=== PATIENT | male | born 1940 | race Caucasian/White ===

== ENCOUNTER → 2016-08-19 | Outpatient (CLI) | payer OTHER ==
[~2016-08-19] MED LIST: ALLOPURINOL 30300 M1 PO; CENTRUM SILVER1 EAC2 PO; COUMADIN 5 MG TA5 M1 PO; FAMOTIDINE 40 M40 M1 PO; FLOMAX0.4 MG PO; MOBIC7.5 MG PO; MYRBETRIQ50 MG PO; PRINIVIL5 MG; TRAZODONE HCL50 MG PO; ZESTRIL10 MG PO; ZOCOR20 MG PO
== END ==
LOC: RAD 16:12
DX: R06.02 Shortness of breath (principal)

== ENCOUNTER 2017-09-15 10:04 | Inpatient (IN) | payer OTHER ==
[~2017-09-15] VITALS: Ht 180.3 cm; Wt 83.0 kg
--- NOTE | ~2017-09-15 | H ---
[facility] [place] [address] HISTORY AND PHYSICAL Name: NEO ANDREWS Room #: 217-P ADM IN M.R.#: [id number] Admission: 09/15/17 Attend Phys: Mo Garrett MD Discharge: Date of : 40 Report #: [id number] THIS REPORT FOR: //name// CC: Tomi Moeller MD [facility] Mo Garrett MD DATE OF SERVICE: 09/15/2017 CHIEF COMPLAINT: Dizziness. HISTORY OF PRESENT ILLNESS: The patient is a 76-year-old male who presented to the [facility] Emergency Department at the urging of Dr. Garrett's office staff after he developed dizziness yesterday, the day prior to his presentation. The patient reports that the dizziness started when he was seated at the table at dinner with family and he put his head back and became dizzy and when he brought his head forward again, the dizziness quickly resolved. He described it as a room spinning at that time. He had no further episodes that night, although he did feel somewhat lightheaded overnight as he got up to go to the bathroom several times and reported needing to steady himself against furniture or lucas in order to keep from falling. On the following morning, he was again having dizziness and possibly some sweating and he checked his blood pressure and it was elevated in the range of 170s systolic. At that point, he contacted Dr. Garrett's office and with their help decided to be brought to the Emergency Room for further evaluation and treatment. I was contacted by Dr. Ryann Lux after her evaluation of him and he is admitted for further evaluation and treatment. PAST MEDICAL HISTORY: Includes benign prostatic hypertrophy with transurethral resection of the prostate. Hypertension. Chronic atrial fibrillation without need for rate-controlling medications. Stroke at least 10 years ago in [place]. He tells me that this atrial fibrillation was diagnosed at that time and felt to be the major contributor to the stroke. He has also had a squamous cancer removed from his nose. He did not mention gout, but he takes allopurinol as one of his formal medications. He did not mention acid reflux, but takes famotidine twice daily. He also has a skin condition, some sort of eczema, for which he takes 5 ivermectin tablets on a weekly basis. He reports that since the stroke, he has a residual left-sided weakness, but he is not very debilitated by the stroke than he had. MEDICATIONS: Include warfarin, tamsulosin, famotidine, allopurinol, multivitamin, simvastatin, lisinopril and ivermectin. ALLERGIES: He has no known drug allergies. 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 He [address] [address] HISTORY AND PHYSICAL Name: NEO ANDREWS Manuela Room #: 217-P [facility] IN M.R.#: [id number] Admission: 09/15/17 Attend Phys: Mo Garrett MD Discharge: Date of : 40 Report #: [id number] is a nonsmoker, nondrinker and has never used recreational drugs. REVIEW OF SYSTEMS: The patient denies any dizziness prior to yesterday. He does admit that on a daily basis he gets very tired in the afternoons and easily falls asleep and takes naps from his extreme fatigue. He recently started working with a marine animal trainer to try and improve his general health. However, his visits with the marine animal trainer had been frustrated by increasing symptoms of dizziness or lightheadedness or weakness. His third visit, he basically had to cancel because of the dizziness now. He denies any chest pain or shortness of breath. His appetite has been otherwise pretty good. His bowel habits are regular and controlled. His urinary habits suggest that he has some urgency and nocturia because of his transurethral prostate resection in the past. No other symptoms of weight loss or neurological symptoms or trauma. PHYSICAL EXAMINATION: VITAL SIGNS: In the Emergency Room showed temperature of 36.4 degrees centigrade, pulse of 48, respirations of 18, blood pressure of 178/62 with a pulse oximetry of 97% on room air and a self-reported weight of 182 pounds. GENERAL: The patient is a well-developed, well-nourished white male, in no distress. HEENT: The extraocular muscles are intact. The oropharynx is moist and pink. No lesions, no exudates. The patient has a nasal deformity across the bridge which is apparently due to a prior squamous cancer resection surgery and he appears to have a deviated septum as well. Hearing is grossly normal. NECK: Without adenopathy, thyromegaly, mass or significant bruit. LUNGS: Fairly clear bilaterally. CARDIAC EXAMINATION: Reveals a reveals a regular bradycardia with occasional extrasystoles noted (note atrial fibrillation on his EKG). ABDOMEN: Soft. Bowel sounds are present. No visceromegaly or masses. No bruits, no hernias. EXTREMITIES: No cyanosis, no clubbing, no edema. Peripheral pulses are strong throughout and easily palpated. He has some mild left-sided weakness in the upper and lower extremities. Gait was not assessed. MENTAL STATUS: The patient is alert. He is fully oriented. No hallucinations, no delusions. He is very sharp with his short and long-term memory. He is able to think abstractly with ease. His affect is full. No other focal neurologic deficits of cranial nerves or cranial cerebellar noted on exam today. ASSESSMENT AND PLAN: 1. Positional vertigo, benign and paroxysmal - the meclizine appeared to give him a great deal of relief in the Emergency Room today. We will order it to be available as needed up to 3 times a day. However, this is not his only problem. 2. Severe bradycardia - in the setting of atrial fibrillation. This degree of bradycardia is quite marked. In reviewing his telemetry monitored strips from this afternoon, he had a rate of 34 beats per minute at one point. He certainly merits careful observation for 24 hours here at the hospital to make sure that [facility] [address] [place] [address] HISTORY AND PHYSICAL Name: NEO ANDREWS Room #: 217-P ADM IN [facility].#: [id number] Admission: 09/15/17 Attend Phys: Mo Garrett MD Discharge: Date of : 40 Report #: [id number] he is not developing any further more severe arrhythmias. His symptoms of extreme fatigue in the afternoons suggest that his cardiac problems may be contributing more to his clinical degradation in the last year, but might be expected. At this point, I do not believe his dizziness has anything to do with his bradycardia. 3. Hypertension - I agree with careful management of blood pressure lowering drugs in the event of this severe bradycardia problem, but he has already had a stroke once. 4. Chronic atrial fibrillation. Continue Coumadin. He is currently anticoagulated adequately, with an INR of 2.1 in the Emergency Room. Echocardiogram will be very useful to see what kind of ejection fraction he has. In a possibly unrelated note, the patient reports having had a cardiac catheterization when he was a teenager and was initially told that he would not be able to play and compete in contact sports like football. This was later rescinded. He is not sure of the reason that was given at that time. He states that he did have a heart murmur that went away with time. Possibly a patent foramen ovale? The echocardiogram will be very important in his hospital workup. 5. Benign prostate hypertrophy, status post transurethral resection of the prostate, with some residual nocturia and urinary urgency. We will monitor and treat accordingly. He does not have any evidence of infection at this time. 6. Hyperlipidemia. Continue on statin therapy as part of the total risk reduction strategy after a stroke. 7. Presumed gastroesophageal reflux disease. Continue H2 receptor antagonist therapy for now. 8. History of squamous cell carcinoma across the nose. Follow up as per Dermatology. 9. History of facial eczema, type not specified - we will continue ivermectin as an outpatient. The patient desires to have a full code blue status and the order has been entered electronically. <ELECTRONICALLY SIGNED> By: Adarsh Marr MD 09/16/17 1047 520 Adarsh Marr MD /nt
--- NOTE | ~2017-09-15 | D ---
[facility] [place] [address] DISCHARGE SUMMARY Name: NEO ANDREWS Room #: 217-P [facility] IN M.R.#: [id number] Admission: 09/15/17 Attend Phys: Mo Garrett MD Discharge: 09/16/17 Date of : 40 Report #: [id number] THIS REPORT FOR: //name// CC: Tomi Moeller MD [facility] Mo Garrett MD DATE OF SERVICE: 09/16/2017 HOSPITAL COURSE: The patient is a 76-year-old male who presented with dizziness at the emergency room and elevated blood pressure. His initial workup showed significant bradycardia in the presence of chronic atrial fibrillation, without rate limiting drugs. His dizziness, however, was described as a room spinning type of dizziness and definitely related to position. He was admitted for 24 hours to observe his cardiovascular rhythm, given the underlying bradycardia. His heart rate was as low as 34 beats per minute at one point, but never really below that. Cardiology consultation with Dr. Tomi Moeller was obtained and the following day, we discussed the results of his telemetry and the history he gave. It is felt to be quite unlikely that his dizziness was due to a cardiovascular cause. We agree that vertigo, benign paroxysmal positional vertigo, is the most likely cause of his symptoms. He did obtain prompt and excellent response with p.r.n. doses of meclizine. Echocardiogram was obtained to assess his cardiac structure and function and the results of this test are pending at time of this dictation. Dr. Moeller also felt that a 2-week event monitor study was appropriate and placed it during this patient's hospital stay. At time of discharge, the plan is for the patient to be seen by Dr. Moeller's office in 2 weeks for followup and he is otherwise to continue his prehospitalization medications with the addition of p.r.n. doses of meclizine. I also educated the patient in the [place] exercises for vestibular problems. At time of discharge, the patient is on following medications regimen, meclizine 25 mg by mouth 3 times a day p.r.n. dizziness, tamsulosin 0.4 mg by mouth daily for prostatism, famotidine 40 mg by mouth b.i.d. for GERD, allopurinol 300 mg daily for gout, multivitamin daily, simvastatin 40 mg by mouth daily, lisinopril 10 mg by mouth daily and ivermectin for treatment of a facial rash per his manager heart. Incidentally, his INR was 2.1 on arrival. DISCHARGE DIAGNOSES: 1. Benign paroxysmal and positional vertigo. 2. Severe bradycardia. 3. Chronic atrial fibrillation. 4. Hypertension. [address] [address] DISCHARGE SUMMARY Name: NEO ANDREWS Room #: 217-P [facility] IN M.R.#: [id number] Admission: 09/15/17 Attend Phys: Mo Garrett MD Discharge: 09/16/17 Date of : 40 Report #: [id number] 5. Prostatism. 6. Gastroesophageal reflux disease. 7. Gout history. 8. Hyperlipidemia. 9. Unspecified eczema. The patient has followup visits with Dr. Moeller in [address] Garrett in 2 weeks. He specifically asked me if it was okay to start an exercise program with a principal trainer. I did discuss this with Dr. Moeller and as long as the patient's symptoms like dizziness and shortness of breath are not excessive, he can participate and is encouraged to discuss the matter further with Dr. Garrett upon his return. <ELECTRONICALLY SIGNED> By: Adarsh Marr MD 09/17/17 1543 1139 1229 Adarsh Marr MD /nt
--- NOTE | ~2017-09-15 | EKG ---
[address] [address] ELECTROCARDIOGRAM REPORT Name: NEO ANDREWS Room #: 217-P ADM IN M.R.#: [id number] Admission: 09/15/17 Attend Phys: Mo Garrett MD Discharge: Date of : 40 Report #: [id number] THIS REPORT FOR: //name// [facility] ED Test Date: 2017-09-15 Test Time: 10:25:01 Pat Name: NEO ANDREWS Department: Room: 217 Gender: M Network Designer: BETHANY : 1940 Requested By: Ryann Lux Order Number: [id number] MD: Tomi Moeller Measurements Intervals [place] Rate: 50 P: NC: QRS: -10 QRSD: 104 T: -15 QT: 466 QTc: 425 Interpretive Statements Atrial fibrillation Abnormal R-wave progression, early transition Nonspecific T abnormalities, lateral leads Small inferior Q waves Compared to ECG 05/16/2015 23:24:33 No significant change was found Electronically Signed On 09-15-2017 17:18:01 CDT by Tomi Moeller [email or web address] <ELECTRONICALLY SIGNED> By: Tomi Moeller MD, FACC 09/15/17 1718 1025 1025 Tomi Moeller MD, [facility] /EPI
--- NOTE | ~2017-09-15 | 2DMMODE ---
[facility] [address] [place] [address] 2 D/M-MODE ECHOCARDIOGRAM Name: NEO ANDREWS Room #: 217-P [facility] IN [facility]#: [id number] Admission: 09/15/17 Attend Phys: Mo Garrett, Discharge: Date of : 40 Date of Service: 09/16/17 1222 Report #: [id number] THIS REPORT FOR: //name// APPROVED REPORT Study performed: 09/16/2017 08:31:36 EXAM: Comprehensive 2D, Doppler, and color-flow Echocardiogram Patient Location: Bedside Room #: Echo lab 2 Status: routine BSA: 2.03 HR: 51 bpm BP: 118/51 mmHg Rhythm: Atrial Fibrillation Other Information Study Quality: Good Indications Atrial Fibrillation Dizziness and Vertigo Bradycardia Hypertension/HDD 2D Dimensions RVDd: 57.66 mm LVEF(%): 61.80 (>50%) IVSd: 9.76 (7-11mm) LVOT Diam: 19.78 (18-24mm) LVDd: 42.42 mm PWd: 11.11 (7-11mm) Ascending Ao: 32.44 (22-36mm) LVDs: 28.45 (25-40mm) Aortic Root: 32.80 mm IVC: 20.00 mm Lo's LVEF: 61.80 % Volumes Left Atrial Volume (Systole) Single Plane 4CH: 111.11 mL Single Plane 2CH: 157.76 mL LA ESV Index: 74.00 mL/m2 Aortic Valve AoV Peak Power.: 1.45 m/s AO Peak Gr.: 8.39 mmHg LVOT Max P.76 mmHg LVOT Max V: 0.97 m/s NICK Vmax: 2.06 cm2 AI Vmax: 3.83 m/s [facility] [place] [address] 2 D/M-MODE ECHOCARDIOGRAM Name: MARAHPIERRENEO Room #: 217-P [facility] IN ..#: [id number] Admission: 09/15/17 Attend Phys: Mo Garrett, Discharge: Date of : 40 Date of Service: 09/16/17 1222 Report #: [id number] AI [place]: 1.54 m/s2 AI PHT: 726.28 ms Mitral Valve MV Decel. Time: 160.65 ms MV E Max Power.: 1.10 m/s Pulmonary Valve PV Peak Power.: 2.70 m/s PV Peak Gr.: 29.21 mmHg AL End Vmax: 1.27 m/s Tricuspid Valve TR Peak Power.: 2.72 m/s TR Peak Gr.: 29.52 mmHg PA Pressure: 40.00 mmHg Left Ventricle The left ventricle is normal size. There is normal LV segmental wall motion. There is normal left ventricular wall thickness. The left ventricular systolic function is normal. The left ventricular ejection fraction is within the normal range. LVEF is 60-65%. This study is not technically sufficient to allow evaluation of the LV diastolic function due to atrial fibrillation. Right Ventricle Right ventricle is dilated. The right ventricular systolic function is normal. Atria Left atrium is dilated. Right atrium is dilated. Aortic Valve Aortic valve is mildly sclerotic, trileaflet. Mild aortic regurgitation. There is no aortic valvular stenosis. Mitral Valve The mitral valve is normal in structure. Mild mitral regurgitation. No evidence of mitral valve stenosis. Tricuspid Valve The tricuspid valve is normal in structure. There is mild tricuspid regurgitation. Estimated PAP 40 mmHg. There is mild-moderate pulmonary hypertension. Pulmonic Valve Pulmonic stenosis with a peak gradient of 31 mmHg and a mean gradient [facility] [address] [place] [address] 2 D/M-MODE ECHOCARDIOGRAM Name: JULIANANEO Room #: 217-P [facility]#: [id number] Admission: 09/15/17 Attend Phys: Mo Garrett, Discharge: Date of : 40 Date of Service: 09/16/17 1222 Report #: [id number] of 16 mmHg. Trace pulmonic regurgitation. Great Vessels The aortic root is normal in size. IVC is dilated and collapses >50% with inspiration. Pericardium There is no pericardial effusion. <Conclusion> The left ventricular systolic function is normal. There is normal LV segmental wall motion. LVEF is 60-65%. Both atria are severely dilated. Aortic valve is mildly sclerotic, trileaflet. Mild aortic regurgitation, no stenosis. The mitral valve is normal in structure. Mild mitral regurgitation. Pulmonic stenosis, mild-moderate (peak gradient of 31 mmHg, mean gradient of 16 mmHg). There is no pericardial effusion. <ELECTRONICALLY SIGNED> By: Tomi Moeller MD, [facility] 09/16/17 122 21 21 Tomi Moeller MD, [facility] /INF
[2017-09-15 10:07] VITALS: BP 178/62
[2017-09-15] MEDS ORDERED: STROMECTOL3 MG PO (10:25)
[2017-09-15 11:04] LABS: URINE BILIRUBIN NEGATIVE (Negative); URINE BLOOD NEGATIVE (Negative); URINE CLARITY CLEAR; URINE COLOR YELLOW; URINE GLUCOSE-RANDOM* NEGATIVE (Negative); URINE KETONES TRACE (Negative); URINE LEUKOCYTES-REFLEX NEGATIVE (Negative); URINE NITRITE-REFLEX NEGATIVE (Negative); URINE PROTEIN (DIPSTICK) NEGATIVE (Negative); URINE UROBILINOGEN 0.2 E.U./dl (0.2-1.0)
[2017-09-15 11:06] LABS: HEMATOCRIT 44.2 % (42.0-52.0); HEMOGLOBIN 14.8 gm/dL (14.0-18.0); MCH 31.7 pg (26.0-34.0); MCHC 33.5 g/dL (28.0-37.0); MCV 94.7 fL (80.0-100.0); RBC 4.67 mil/uL (4.50-6.00); RDW 15.9 % (10.5-14.5); WBC 6.7 thou/uL (4.0-11.0)
[2017-09-15 11:16] LABS: ANION GAP 9 mmol/L (7-16); BUN 21 mg/dL (7-18); CHLORIDE 105 mmol/L (98-107); CO2 24 mmol/L (21-32); CREATININE 0.9 mg/dL (0.7-1.3); GLUCOSE 106 mg/dL (74-106); POTASSIUM 4.1 mmol/L (3.5-5.1); SODIUM 138 mmol/L (136-145)
[2017-09-15 11:20] LABS: INR 2.1; PROTIME 21.4 Seconds (9.3-11.4)
[2017-09-15 11:24] LABS: ALBUMIN 3.9 g/dL (3.4-5.0); SGOT 30 U/L (15-37); SGPT 40 U/L (30-65); TOTAL BILIRUBIN 2.1 mg/dL (<0.1-1.0); TOTAL PROTEIN 7.2 g/dL (6.4-8.2); TROPONIN-I <0.06 ng/mL (<0.06)
[2017-09-15 14:31] VITALS: BP 150/65
[2017-09-15 14:57] VITALS: BP 166/74
[2017-09-15 19:35] VITALS: BP 150/58
[2017-09-16 04:24] VITALS: BP 118/51
[2017-09-16 08:20] VITALS: BP 148/62
[2017-09-16] MEDS ORDERED: ANTIVERT25 MG PO (10:49)
[2017-09-16 11:48] VITALS: BP 148/62
== END 2017-09-16 12:30 | disposition home or self-care (01) | DRG 149 ==
LOC: ER 10:04 → 2N 14:48 → ENTRNSPT 09-16 12:36 → EDTRNSPTSTS 09-16 12:39
PROVIDERS: Student in an Organized Health Care Education/Training Program
DX: H81.10 Benign paroxysmal vertigo, unspecified ear (principal); D68.59 Other primary thrombophilia; R00.1 Bradycardia, unspecified; I10 Essential (primary) hypertension; I48.2 Chronic atrial fibrillation; N40.0 Benign prostatic hyperplasia without lower urinary tract symptoms; K21.9 Gastro-esophageal reflux disease without esophagitis; M10.9 Gout, unspecified; E78.5 Hyperlipidemia, unspecified; Z86.73 Personal history of transient ischemic attack (TIA), and cerebral infarction without residual deficits; Z79.01 Long term (current) use of anticoagulants; Z79.899 Other long term (current) drug therapy; Z82.3 Family history of stroke
CPT/HCPCS: 10081

== ENCOUNTER 2018-04-18 21:12 | Emergency (ER) | payer OTHER ==
[~2018-04-18] VITALS: Ht 180.3 cm; Wt 85.7 kg
[~2018-04-18 21:12] MED LIST changes: +ANTIVERT25 MG PO; +STROMECTOL3 MG PO
[2018-04-18 21:42] LABS: HEMATOCRIT 43.9 % (42.0-52.0); HEMOGLOBIN 14.8 gm/dL (14.0-18.0); MCH 32.2 pg (26.0-34.0); MCHC 33.7 g/dL (28.0-37.0); MCV 95.5 fL (80.0-100.0); RBC 4.59 mil/uL (4.50-6.00); RDW 15.7 % (10.5-14.5); WBC 7.3 thou/uL (4.0-11.0)
[2018-04-18 21:52] LABS: CALCIUM 9.7 mg/dL (8.5-10.1); CREATININE 1.1 mg/dL (0.7-1.3); POTASSIUM 4.2 mmol/L (3.5-5.1)
[2018-04-18 21:57] LABS: ALBUMIN 3.7 g/dL (3.4-5.0); TOTAL BILIRUBIN 1.2 mg/dL (<0.1-1.0); TOTAL PROTEIN 7.4 g/dL (6.4-8.2)
[2018-04-18 22:05] LABS: TROPONIN-I <0.06 ng/mL (<0.06)
[2018-04-19] MEDS ORDERED: CLONIDINE0.1 PO (00:21)
[2018-04-19 00:42] VITALS: BP 160/62
--- NOTE | 2018-04-19 07:56 | EKG ---
[place] [address] [place] [address] ELECTROCARDIOGRAM REPORT Name: NEO ANDREWS Room #: [facility]#: [id number] ������������������ Admission: 04/18/18 ������������������ Attend Phys: Discharge: 04/19/18 ������������������ Date of : 40 Report #: [id number] ����������������������������������������������������������������� [id number] THIS REPORT FOR: //name// [facility] ED Test Date: 2018-04-18 Test Time: 21:24:52 Pat Name: NEO ANDREWS Department: Room: Gender: Chute Tapper: thomas : 1940 Requested By: Lito Sellers Order Number: [id number] MD: Tomi Moeller Measurements Intervals [place] Rate: 59 P: GA: QRS: -14 QRSD: 103 T: -25 QT: 423 QTc: 419 Interpretive Statements Atrial fibrillation Abnormal R-wave progression, early transition Abnrm T, consider ischemia, anterolateral lds Compared to ECG 09/15/2017 10:25:01 No significant change was found Electronically Signed On 04-19-2018 7:55:45 FAMILY PRACTICE DOCTOR by Tomi Moeller [email or web address] ��������������������������������������������� <ELECTRONICALLY SIGNED> ���������������������������������������� By: Tomi Moeller MD, [facility] ��������������������������������������������� 04/19/18 0755 23 Tomi Moeller MD, [facility] /EPI
== END 2018-04-19 00:42 | disposition home or self-care (01) ==
LOC: ER 21:12
PROVIDERS: Emergency Medicine
DX: I10 Essential (primary) hypertension (principal); I48.91 Unspecified atrial fibrillation; E78.5 Hyperlipidemia, unspecified; Z85.828 Personal history of other malignant neoplasm of skin

== ENCOUNTER → 2019-09-01 | Outpatient (CLI) | payer OTHER ==
[~2019-09-01] MED LIST changes: +ALLOPURINOL 10100 M3 PO; -ALLOPURINOL 30300 M1 PO; +CHLORTHALIDONE25 MG PO; +CLONIDINE0.1 PO; +FAMOTIDINE40 MG PO; +LORAZEPAM 1 MG T1 MG PO; +LORCET 5-325 M1 EACH PO; +MULTIVITAMINS1 EAC7 PO; +MYRBETRIQ25 MG PO; +OLMESARTAN MEDO40 MG PO; +VITAMIN D325 MC5 PO
== END ==
LOC: LAB 14:17
PROVIDERS: ATTEND Student in an Organized Health Care Education/Training Program
DX: Z01.812 Encounter for preprocedural laboratory examination (principal); Z11.59 Encounter for screening for other viral diseases

== ENCOUNTER 2019-09-05 11:07 | Day surgery (SDC) | payer OTHER ==
[~2019-09-05] VITALS: Ht 180.3 cm; Wt 83.9 kg
[~2019-09-05 11:07] MED LIST changes: -LORCET 5-325 M1 EACH PO
[2019-09-05 12:20] LABS: APTT 36.2 Seconds (24.5-32.8); INR 1.2; PROTIME 12.7 Seconds (9.3-11.4)
[2019-09-05 12:38] VITALS: BP 125/54
[2019-09-05] MEDS ORDERED: LORCET 5-325 M1 EACH PO (15:45)
[2019-09-05 15:57] VITALS: BP 125/54
--- NOTE | 2019-09-06 07:37 | EKG ---
[facility] [place] [address] ELECTROCARDIOGRAM REPORT Name: NEO ANDERWS Room #: DEP [facility].#: [id number] Admission: 09/05/19 Attend Phys: Luis F Encinas MD Discharge: 09/05/19 Date of : 40 Report #: [id number] THIS REPORT FOR: cc: Mo Garrett MD, Stanley P. MD Lundgren, Craig H. MD [facility] ~ THIS REPORT FOR: //name// [facility] Test Date: 2019-09-05 Test Time: 12:03:19 Pat Name: NEO ANDREWS Department: Room: [facility] 3 Gender: M Computing Consultant: ANA : 1940 Requested By: Luis F Encinas Order Number: [id number] MD: Tomi Moeller Measurements Intervals [place] Rate: 46 P: 0 NC: 176 QRS: -9 QRSD: 100 T: -30 QT: 465 QTc: 407 Interpretive Statements Atrial fibrillation Inferiorposterior infarct, old Abnrm T, consider ischemia, anterolateral lds Compared to ECG 04/18/2018 21:24:52 No significant change was found Electronically Signed On 09-06-2019 7:37:51 CDT by Tomi Moeller [email or web address] <ELECTRONICALLY SIGNED> By: Tomi Moeller MD, [facility] 09/06/19 0737 1203 1203 Tomi Moeller MD, FAC /EPI
--- NOTE | 2019-09-08 11:57 | H ---
[facility] [place] [address] HISTORY AND PHYSICAL Name: NEO ANDREWS Room #: DEP [facility]..#: [id number] Admission: 09/05/19 Attend Phys: Luis F Encinas MD Discharge: 09/05/19 Date of : 40 Report #: [id number] THIS REPORT FOR: cc: Mo Garrett MD, Stanley P. MD Chu, Peter Y. MD ~ CC: Tomi Moeller MD [facility] Luis F Garrett MD PREOPERATIVE DIAGNOSIS: Symptomatic left inguinal hernia, finding of a right inguinal hernia also. HISTORY OF PRESENT ILLNESS: The patient is a 78-year-old who was seen in the office last week complaining of a left inguinal hernia for about a week. He had issue with constipation and when he strained he thought that the hernia came out at that time. There is a lump on the left side. He has been able to push it back in. He has had 2 episodes of discomfort, moderate pain. He does not do any heavy lifting. No chronic cough or sneezing. No prior history of hernias. No family history of hernia. He is pretty active. The patient also complains of discomfort with standing. The patient was told that his INR was high and twice the level and he was told to stop his Coumadin. The patient is brought in for surgery and he has held his Coumadin since last Wednesday. He is on Coumadin for atrial fibrillation. He was examined and found to have a moderately large left inguinal hernia and a small right inguinal hernia. The patient is here for surgery. PAST MEDICAL HISTORY: Atrial fibrillation. Has a history of rheumatic fever. A stroke 10 years ago from the atrial fibrillation. FAMILY HISTORY: High blood pressure, diabetes. SOCIAL HISTORY: The patient is retired. He does not smoke or drink. ALLERGIES: He is not allergic to anything. REVIEW OF SYSTEMS: No shortness of breath, upper respiratory infection symptoms. No numbness or weakness. PHYSICAL EXAMINATION: GENERAL: The patient is an elderly male. HEENT: Pupils react to light. Extraocular muscles are intact. Oropharynx is clear. NECK: Soft and supple, no masses, no JVD. LUNGS: Clear to auscultation. HEART: Irregular rate and rhythm. No murmur or gallop. [facility] [address] [place] [address] HISTORY AND PHYSICAL Name: NEO ANDREWS Room #: [facility]#: [id number] Admission: 09/05/19 Attend Phys: Luis F Encinas MD Discharge: 09/05/19 Date of : 40 Report #: [id number] ABDOMEN: Soft, nondistended, nontender. No mass, no ascites. The patient does have a moderately large left inguinal hernia, smaller right inguinal hernia. Hernia is reducible. EXTREMITIES: No cyanosis, clubbing, edema. IMPRESSION AND PLAN: The patient is a 78-year-old with a symptomatic left inguinal hernia. He is found to have a right inguinal hernia. Both will be repaired with the laparoscopic approach. The patient is on Coumadin. He stopped his Coumadin last Wednesday. I did discuss this with Dr. Moeller. No bridging was needed. He recommended starting back up on the Coumadin later on the day of the surgery. Protime will be checked today. The patient will receive IV antibiotics. Risk of bleeding, infection, mesh infection, hernia recurrence was discussed. The patient understands and wishes to proceed. <ELECTRONICALLY SIGNED> By: Luis F Encinas MD 09/08/19 1157 0745 0809 Luis F Encinas MD /nt
--- NOTE | 2019-09-08 11:57 | O ---
[facility] [place] [address] OPERATIVE REPORT Name: NEO ANDREWS Room #: [facility].#: [id number] Admission: 09/05/19 Attend Phys: Luis F Encinas MD Discharge: 09/05/19 Date of : 40 Report #: [id number] THIS REPORT FOR: cc: Mo Garrett MD, Stanley P. MD Chu,Luis F Castillo MD ~ CC: Tomi Moeller MD [facility] Luis F Garrett MD DATE OF SERVICE: 09/05/2019 PREOPERATIVE DIAGNOSIS: Bilateral inguinal hernia, left greater than the right. POSTOPERATIVE DIAGNOSES: 1. Left indirect inguinal hernia. 2. Right direct and indirect component. PROCEDURE PERFORMED: Laparoscopic repair of bilateral inguinal hernia with mesh. SURGEON: Luis F Encinas MD ANESTHESIA: General anesthesia. COMPLICATIONS: None. ESTIMATED BLOOD LOSS: 5 mL. PROCEDURE NOTE: With the patient under general anesthesia, Mckay catheter was placed. Abdomen was prepped and draped in sterile fashion. The patient did receive preoperative IV antibiotics. Timeout was performed. A 0.25% Marcaine was used to anesthetize the skin. A 2 cm transverse incision was made on the right side of the umbilicus. After dissecting through the skin and subcutaneous tissue, the anterior rectus fascia was identified. Anterior rectus fascia was opened transversely. The muscle was spread along the length of its fiber. The space between the muscle and the posterior fascia was bluntly dissected inferiorly. A balloon trocar was placed into the space. Balloon was inflated. CO2 was placed. Under visualization, a 5 mm trocar was placed about 2 inches below the umbilicus. Blunt dissection and also cautery was used to open up the properitoneal space. There was obvious 1.5 cm sized right direct inguinal hernia seen. Dissection was carried out laterally, freeing the wall lateral to the inferior epigastric artery and the internal ring. Slightly superior to the internal ring, a second 5 mm trocar was placed through here. Under visualization, the left side was opened up. The left inferior epigastric artery [address] [address] OPERATIVE REPORT Name: JULIANANEO Room #: [facility] M..#: [id number] Admission: 09/05/19 Attend Phys: Luis F Encinas MD Discharge: 09/05/19 Date of : 40 Report #: [id number] and vein was identified. Preserved from harm. There was no direct defect visualized. The patient did have a large indirect hernia sac. The hernia sac was isolated and reduced. This was pulled out of the canal and from the cord structure sitting underneath it. The hernia sac was freed off the cord without difficulty. This was left in the retroperitoneal space. The internal ring was seen and isolated. The wall lateral to it was intact. The pubic bone was all dissected free bilaterally. The bladder was visualized and preserved from harm. There was a Mckay catheter within the bladder. The dissection was then carried out on the right side. The direct defect was a freed, isolated. There were some adhesions that went up to it. This was freed without difficulty. The defect was seen easily. Over the cord structure, the patient did have an indirect hernia sac also. This was much smaller than the defect on the left. This was freed off the cord structure reducing the properitoneal space. Both sites were all dissected out. A left-sided large 3DMax lightweight mesh was placed through the 11 mm balloon trocar, opened the properitoneal space, this was then positioned. The mesh laterally was tacked to the abdominal wall. Inferomedially tacked to the Alen's ligament and then superomedially to the rectus muscle. A right-sided 3DMax lightweight mesh was also introduced. This was then placed over the right side. The mesh covered the internal ring well and also covered the direct defect. Mesh was tacked to the wall with SorbaFix, inferiorly to the Alen's ligament, superomedially with SorbaFix. CO2 was evacuated. The trocars were removed. At the umbilical incision, the posterior fascia was opened and the CO2 which traveled into the peritoneal cavity was released. The small opening in the posterior fascia and peritoneum was closed with [id number] 0 Vicryl. Anterior fascia was closed with [id number] 0 Vicryl x 2. Skin was irrigated. Skin was closed with 5-0 PDS. Steri-Strip, Band-Aids applied. The patient tolerated the procedure well. <ELECTRONICALLY SIGNED> By: Luis F Encinas MD 09/08/19 [id number] Luis F Encinas MD /nt
== END 2019-09-05 16:04 | disposition home or self-care (01) ==
LOC: OR 11:07 → TBA 11:07 → OR 11:31
PROVIDERS: ATTEND Surgery
DX: K40.20 Bilateral inguinal hernia, without obstruction or gangrene, not specified as recurrent (principal); I48.91 Unspecified atrial fibrillation; Z79.01 Long term (current) use of anticoagulants; Z79.899 Other long term (current) drug therapy; Z83.3 Family history of diabetes mellitus; Z82.49 Family history of ischemic heart disease and other diseases of the circulatory system
CPT/HCPCS: 50010; 50101; 50249; 50411; 50455; 50507; 50555; 50848; 52265; 53065; 53307; 56525; 56526; 62110; 62900; 70005

== ENCOUNTER → 2020-04-26 | Outpatient (CLI) | payer OTHER ==
[~2020-04-26] MED LIST changes: +LORCET 5-325 M1 EACH PO
== END ==
LOC: SJCVC 14:41
PROVIDERS: ATTEND Internal Medicine
DX: I48.21 Permanent atrial fibrillation (principal); R94.31 Abnormal electrocardiogram [ECG] [EKG]; R00.1 Bradycardia, unspecified; I10 Essential (primary) hypertension; E78.5 Hyperlipidemia, unspecified; I37.0 Nonrheumatic pulmonary valve stenosis; I63.419 Cerebral infarction due to embolism of unspecified middle cerebral artery; K21.9 Gastro-esophageal reflux disease without esophagitis; M10.9 Gout, unspecified; F17.290 Nicotine dependence, other tobacco product, uncomplicated; Z79.01 Long term (current) use of anticoagulants; Z86.16 Personal history of COVID-19; Z79.899 Other long term (current) drug therapy

== ENCOUNTER 2020-07-10 17:10 | Emergency (ER) | payer OTHER ==
[~2020-07-10] VITALS: Ht 180.3 cm; Wt 84.8 kg
[2020-07-10 17:14] VITALS: BP 129/60
== END 2020-07-10 18:57 | disposition home or self-care (01) ==
LOC: ER 17:10
DX: M25.511 Pain in right shoulder (principal); R07.81 Pleurodynia; I48.91 Unspecified atrial fibrillation; I10 Essential (primary) hypertension; E78.5 Hyperlipidemia, unspecified; K21.9 Gastro-esophageal reflux disease without esophagitis; Z86.73 Personal history of transient ischemic attack (TIA), and cerebral infarction without residual deficits; Z98.890 Other specified postprocedural states; Z79.899 Other long term (current) drug therapy; Z79.01 Long term (current) use of anticoagulants

== ENCOUNTER → 2020-11-01 | Outpatient (CLI) | payer OTHER | LOC: SJCVCIMAG 08:34 | PROVIDERS: ATTEND Internal Medicine | DX: I08.8 Other rheumatic multiple valve diseases (principal); R94.31 Abnormal electrocardiogram [ECG] [EKG]; I48.21 Permanent atrial fibrillation; I10 Essential (primary) hypertension; R00.1 Bradycardia, unspecified; E78.5 Hyperlipidemia, unspecified; I63.419 Cerebral infarction due to embolism of unspecified middle cerebral artery; K21.9 Gastro-esophageal reflux disease without esophagitis; M10.9 Gout, unspecified; N40.0 Benign prostatic hyperplasia without lower urinary tract symptoms; F17.200 Nicotine dependence, unspecified, uncomplicated; Z79.01 Long term (current) use of anticoagulants; Z79.899 Other long term (current) drug therapy; Z86.16 Personal history of COVID-19; Z86.73 Personal history of transient ischemic attack (TIA), and cerebral infarction without residual deficits ==